=== PATIENT | male | born 1965 | race Two or more races ===

== ENCOUNTER 2020-06-21 11:13 | Emergency (ER) | payer OTHER ==
[~2020-06-21] VITALS: Ht 177.8 cm; Wt 95.3 kg
== END 2020-06-21 17:19 | disposition home or self-care (01) ==
LOC: ER 11:13
DX: S01.81XA Laceration without foreign body of other part of head, initial encounter (principal); B02.8 Zoster with other complications; W22.8XXA Striking against or struck by other objects, initial encounter; Y93.89 Activity, other specified; Y92.488 Other paved roadways as the place of occurrence of the external cause; Y99.8 Other external cause status

== ENCOUNTER 2024-07-03 12:56 | Emergency (ER) | payer OTHER ==
[~2024-07-03] VITALS: Ht 152.4 cm; Wt 68.0 kg
[2024-07-03] MEDS ORDERED: PANTOPRAZOLE SODIUM 40 MG/VIAL VIAL IV ONE (19:30)
[2024-07-03] MEDS ORDERED: DEXTROSE 5 % AND 0.9 % NACL 500 ML IV SCH (19:30)
[2024-07-03] MEDS ORDERED: THIAMINE HCL 100 MG/ML 2 ML VIAL IV ONE (19:45)
[2024-07-03 21:44] LABS: HEMATOCRIT 44.1 % (39.0-48.0); HEMOGLOBIN 15.6 g/dL (13-16.00); MEAN CELL VOLUME 104.4 fL (80.0-100.00); MEAN CORPUSCULAR HGB CONC 35.4 g/dl (32.0-36.0); PLATELET COUNT 219 K/uL (150-450); RED BLOOD COUNT 4.23 M/uL (4.00-6.00); RED CELL DISTRIBUTION WIDTH 14.4 % (11.5-14.5)
[2024-07-03 22:06] LABS: PH,URINE 6.5 (5.0-8.0); URINE APPEARANCE Clear; URINE BILIRRUBIN Negative (NEGATIVE); URINE BLOOD Trace; URINE COLOR Yellow; URINE GLUCOSE Negative (NEGATIVE); URINE KETONE Trace (NEGATIVE); URINE LEUKOCYTE Trace; URINE NITRATE Positive; URINE PROTEIN Negative (NEGATIVE); URINE UROBILINOGEN 0.2 E.U./dl
[2024-07-03 22:10] LABS: URINE EPITHELIAL CELLS 2.6 uL (0.0-38.8); URINE RBC 14.8 uL (0.0-20.8); URINE WBC 48.3 uL (0.0-23.2)
[2024-07-03 22:13] LABS: URINE BACTERIA > 9821.5 uL (0.0-1933); URINE CAST 0.15 uL (0.0-1.40)
[2024-07-03 22:34] LABS: ALBUMIN 4.4 gm/dL (3.4-5.0); BILIRUBIN TOTAL 0.97 mg/dL (0.3-1.2); CALCIUM 9.3 mg/dL (8.5-10.1); CREATININE SERUM 1.75 mg/dL (0.70-1.30); GFR 40.23; GLOBULINA 3.5 G/DL (2.4-3.5); POTASSIUM 3.49 mEq/L (3.5-5.1); TOTAL PROTEIN 7.9 gm/dL (6.4-8.2)
[2024-07-03 22:35] LABS: COCAINE NEGATIVE (NEGATIVE); METHADONE NEGATIVE (NEGATIVE); OPIATES NEGATIVE (NEGATIVE); THC ( Cannabinoids) NEGATIVE (NEGATIVE)
[2024-07-03] MEDS ORDERED: CEFTRIAXONE SODIUM 2,000 MG VIAL IV ONE (22:45)
[2024-07-03] MEDS ORDERED: hydrOXYzine PAMOATE 25 MG CAPSULE PO ONE (23:00)
[2024-07-03] MEDS ORDERED: LORazepam 2 MG/ML VIAL IV ONE (23:00)
[2024-07-04] MEDS ORDERED: hydrOXYzine PAMOATE 50 MG CAPSULE PO ONE (10:15)
[2024-07-04] MEDS ORDERED: LORazepam 1 MG TABLET PO ONE ×2 (10:15→16:15)
[2024-07-04 11:57] LABS: ALBUMIN 3.7 gm/dL (3.4-5.0); BILIRUBIN TOTAL 1.29 mg/dL (0.3-1.2); BILIRUBIN,CONJUGATED 0.44 mg/dL (0.0-0.2); BILIRUBIN,UNCONJUGATED 0.85 mg/dL (0.0-0.6); MAGNESIUM 2.2 mg/dL (1.8-2.4); PHOSPHOROUS 2.1 mg/dL (2.5-4.9); TOTAL PROTEIN 6.8 gm/dL (6.4-8.2)
== END 2024-07-04 20:17 | disposition designated cancer center or children's hospital (05) ==
LOC: ER 12:58
PROVIDERS: Emergency Medicine; Nurse Practitioner Family
DX: F10.94 Alcohol use, unspecified with alcohol-induced mood disorder (principal)

== ENCOUNTER 2024-08-14 18:53 | Emergency (ER) | payer OTHER ==
[~2024-08-14] VITALS: Ht 177.8 cm; Wt 90.7 kg
[2024-08-14] MEDS ORDERED: ATIVAN0.5 M1 (19:07)
[2024-08-14] MEDS ORDERED: TETANUS & DIPHTHERIA TOX,ADULT 0.5 ML VIAL IM STA (21:35)
[2024-08-14] MEDS ORDERED: TETANUS DIPHTHERIA TOX. ADSOR 5 ML VIAL IM ONE (21:38)
[2024-08-14] MEDS ORDERED: LIDOCAINE HCL 1% 10ML VIAL ONE (21:48)
[2024-08-15 16:35] VITALS: BP 100/73; O2SAT 96
== END 2024-08-15 16:35 | disposition home or self-care (01) ==
LOC: ER 18:53
DX: S01.81XA Laceration without foreign body of other part of head, initial encounter (principal); S62.646A Nondisplaced fracture of proximal phalanx of right little finger, initial encounter for closed fracture; X58.XXXA Exposure to other specified factors, initial encounter; Y93.89 Activity, other specified; Y92.89 Other specified places as the place of occurrence of the external cause; Y99.9 Unspecified external cause status; F10.20 Alcohol dependence, uncomplicated

== ENCOUNTER 2024-10-27 18:08 | Inpatient (IN) | payer OTHER ==
[~2024-10-27] VITALS: Ht 152.4 cm; Wt 72.6 kg
[~2024-10-27 18:08] MED LIST: ATIVAN0.5 M1
--- NOTE | 2024-10-27 18:13 | NUR ---
SE RECIBE PACIENTE ALERTA Y ORIENTADO X 3 ESFERAS EN AMBULANCIA EN COMPANIA DE PARAMEDICOS LOS CUALES INDICA QUE ACTIVARON LA AMBULANCIA PORQUE PACIENTE SE ENCONTRABA EN EL SUELO Y QUE HABIA INGERIDO ALCOHOL.
[2024-10-27] MEDS ORDERED: ONDANSETRON HCL 2 MG/ML VIAL IV ONE (18:15)
[2024-10-27] MEDS ORDERED: 0.9 % SODIUM CHLORIDE 1,000 ML IV ONE (18:15)
[2024-10-27] MEDS ORDERED: MULTIVIT INFUSN,ADULT 4,VIT K 10 ML VIAL IV ONE (18:15)
[2024-10-27] MEDS ORDERED: FAMOtidine 10 MG/ML (4ML VIAL) IV ONE (18:15)
[2024-10-27] MEDS ORDERED: THIAMINE HCL 100 MG/ML 2 ML VIAL IV ONE (18:15)
[2024-10-27] MEDS ORDERED: PIPERACILLIN/TAZOBACTAM SODIUM 3.375 GM VIAL IV ONE ×2 (18:15→19:45)
[2024-10-27] MEDS ORDERED: FOLIC ACID 5 MG/ML VIAL IV ONE (18:15)
[2024-10-27 19:07] LABS: ABG PH 7.538 (7.35-7.45); ABG PO2 66.6 mmHg (80-100); ABG pCO2 31.1 mmHg (35-45); BASE EXCESS 4.1 mmol/l; BICARBONATE 25.9 mmol/l (23-25); SaO2 95.5 %; Tco2 26.9 mmol/l
[2024-10-27] MEDS ORDERED: THIAMINE HCL 100 MG/ML 2 ML VIAL ONE (19:44)
[2024-10-27] MEDS ORDERED: ONDANSETRON HCL 2 MG/ML VIAL ONE (19:45)
[2024-10-27] MEDS ORDERED: FAMOTIDINE/PF 20 MG/2 ML VIAL ONE (19:45)
[2024-10-27 19:55] LABS: allen test SATISFACTORY; o2 21 %; puncture site RADIAL RIGHT
[2024-10-27 22:04] LABS: HEMATOCRIT 40.9 % (39.0-48.0); MEAN CELL VOLUME 102.8 fL (80.0-100.00); MEAN CORPUSCULAR HEMOGLOBIN 35.3 pg (27.00-32.0); MEAN CORPUSCULAR HGB CONC 34.3 g/dl (32.0-36.0); PLATELET COUNT 214 K/uL (150-450); RED BLOOD COUNT 3.98 M/uL (4.00-6.00); RED CELL DISTRIBUTION WIDTH 13.9 % (11.5-14.5)
--- NOTE | 2024-10-27 22:17 | NUR ---
SE RECIBE PTE ALERTA ORIENTADO X3.SE STACEY MUESTRAS DE LABORATORIO USANDO MEDIDAS ASEPTICAS.SE ADMINISTRAN MEDICAMENTOS AGGIE ORDEN MEDICA .SE ORIENTA PTE SOBRE OBJETIVO DE [place] MEDICO.
[2024-10-27 22:22] LABS: PARTIAL THROMBOPLASTIN TIME 22.4 SECONDS (22.0-34.0); PROTHROMBIN TIME 10.9 SECONDS (9.0-11.5)
[2024-10-27 22:39] LABS: ALBUMIN 3.5 gm/dL (3.4-5.0); BILIRUBIN TOTAL 0.42 mg/dL (0.3-1.2); CALCIUM 8.8 mg/dL (8.5-10.1); CREATININE SERUM 2.43 mg/dL (0.70-1.30); GFR 27.18; GLOBULINA 3.6 G/DL (2.4-3.5); POTASSIUM 3.73 mEq/L (3.5-5.1); TOTAL PROTEIN 7.1 gm/dL (6.4-8.2)
--- NOTE | 2024-10-28 07:46 | NUR ---
SE RECIBE PTE MASCULINO DE 63 YRS ALERTA Y TRANQUILO EN DESCANSO PTRE CON IVF'S PATENTE Y ORVILLE DE EDEMA .SE LE RADHA S/V Y SE MANIENE CONSULTADO CON MEDICINA INTERNA Y TRABAJADOR SOCIAL. SE MANTIENE BAJO OBSERVACION.
[2024-10-28] MEDS ORDERED: LORazepam 1 MG TABLET PO STA (15:02)
--- NOTE | 2024-10-28 15:30 | NUR ---
SE RECIBE PTE ALERTA Y ORIENTADO X3. EN CAMA BAJA CON BARANDAS ELEVADAS POR SEGURIDAD. SE OBSERVA CON BUEN PATRON RESPIRATORIO. CANALIZACION PATENTE, ORVILLE DE EDEMA Y ERITEMA, RECIBIENDO IV FLUIDS. PEND CONSULTA CON TRABAJO SOCIAL
--- NOTE | 2024-10-28 21:15 | NUR ---
PTE EN CAMA BAJA CON BARANDAS ELEVADAS, SE ENCUENTRA DESCANSANDO
--- NOTE | 2024-10-28 21:29 | NUR ---
SE NOTIFICA CONSULTA A [facility] BASHIR DOVE.
--- NOTE | 2024-10-29 00:15 | NUR ---
SE RECIBE PACIENTE AL MOMENTO EN AREA DE SECCION K EN CAMA EN POSICION SEMI SENTADA ALERTA Y ORIENTADO Y EN REPOSO. SE MIDEN S/V Y SE MANTIENE BAJO OBSERVACION.
--- NOTE | 2024-10-29 01:00 | NUR ---
SE DA ELIGIO PREVENTIVA AL MOMRENTO PACIENTE EN CAMA EN REPOSO.
--- NOTE | 2024-10-29 02:00 | NUR ---
SE EDUCA A PACIENTE SOBRE MEDICAMENTO PARA MANEJO DE ANSIEDAD, EL MISMO REFIERE ENTENDER Y SE PROCEDE CON ORDEN MEDICA.
[2024-10-29] MEDS ORDERED: hydrOXYzine PAMOATE 50 MG CAPSULE PO STA (02:09)
[2024-10-29 08:34] VITALS: O2SAT 99
[2024-10-29] MEDS ORDERED: 0.9 % SODIUM CHLORIDE 1,000 ML IV SCH (10:15)
[2024-10-29] MEDS ORDERED: hydrALAZINE HCL 20 MG VIAL IV PRN (10:15)
[2024-10-29 10:31] LABS: HEMATOCRIT 40.5 % (39.0-48.0); HEMOGLOBIN 14.1 g/dL (13-16.00); MEAN CELL VOLUME 101.4 fL (80.0-100.00); MEAN CORPUSCULAR HEMOGLOBIN 35.4 pg (27.00-32.0); MEAN CORPUSCULAR HGB CONC 34.9 g/dl (32.0-36.0); PLATELET COUNT 173 K/uL (150-450); RED BLOOD COUNT 3.99 M/uL (4.00-6.00); RED CELL DISTRIBUTION WIDTH 14.1 % (11.5-14.5)
[2024-10-29 11:08] LABS: PH,URINE 6.5 (5.0-8.0); URINE APPEARANCE Clear; URINE BILIRRUBIN Negative (NEGATIVE); URINE BLOOD Negative; URINE COLOR Dark Yellow; URINE GLUCOSE Negative (NEGATIVE); URINE LEUKOCYTE Moderate; URINE NITRATE Positive; URINE PROTEIN Trace (NEGATIVE)
[2024-10-29 11:11] LABS: ALBUMIN 3.5 gm/dL (3.4-5.0); BILIRUBIN TOTAL 0.88 mg/dL (0.3-1.2); CALCIUM 8.7 mg/dL (8.5-10.1); CREATININE SERUM 1.6 mg/dL (0.70-1.30); GFR 44.62; GLOBULINA 3.2 G/DL (2.4-3.5); PHOSPHOROUS 3.2 mg/dL (2.5-4.9); POTASSIUM 3.55 mEq/L (3.5-5.1); TOTAL PROTEIN 6.7 gm/dL (6.4-8.2)
[2024-10-29 11:15] LABS: URINE BACTERIA 1357.2 uL (0.0-1933); URINE EPITHELIAL CELLS 17.8 uL (0.0-38.8); URINE RBC 33.1 uL (0.0-20.8); URINE WBC 444.1 uL (0.0-23.2)
[2024-10-29 11:22] LABS: COCAINE NEGATIVE (NEGATIVE); METHADONE NEGATIVE (NEGATIVE); OPIATES NEGATIVE (NEGATIVE); THC ( Cannabinoids) NEGATIVE (NEGATIVE)
[2024-10-29 11:27] LABS: URINE CAST 0.58 uL (0.0-1.40); URINE KETONE 40 (NEGATIVE); URINE MUCUS SCANT
[2024-10-29] MEDS ORDERED: LORazepam 1 MG TABLET PO SCH (17:00)
[2024-10-29 17:11] LABS: ALBUMIN 3.4 gm/dL (3.4-5.0); BILIRUBIN TOTAL 0.49 mg/dL (0.3-1.2); CALCIUM 8.7 mg/dL (8.5-10.1); CREATININE SERUM 1.63 mg/dL (0.70-1.30); GFR 43.67; GLOBULINA 3.7 G/DL (2.4-3.5); POTASSIUM 3.27 mEq/L (3.5-5.1); TOTAL PROTEIN 7.1 gm/dL (6.4-8.2)
[2024-10-29 18:06] VITALS: BP 119/66
[2024-10-29 18:09] VITALS: BP 149/85
[2024-10-29] MEDS ORDERED: LORazepam 2 MG/ML VIAL IV PRN (19:45)
[2024-10-29] MEDS ORDERED: CHLORDIAZEPOXIDE HCL 25 MG CAPSULE PO SCH (21:00)
[2024-10-29 22:37] LABS: ABG pCO2 33.4 mmHg (35-45); BASE EXCESS 0.8 mmol/l; BICARBONATE 23.8 mmol/l (23-25); SaO2 95.1 %; Tco2 24.8 mmol/l; allen test SATISFACTORY; o2 21 %; puncture site RADIAL LEFT
[2024-10-29 22:39] LABS: ABG PO2 70.5 mmHg (80-100)
[2024-10-30 01:00] VITALS: BP 102/70
[2024-10-30 08:54] VITALS: BP 119/81
[2024-10-30] MEDS ORDERED: LACTULOSE 20 G/30 ML BLIST.PACK PO SCH (09:00)
[2024-10-30] MEDS ORDERED: POTASSIUM CHLORIDE 10 MEQ CAPSULE PO NR (12:30)
[2024-10-30 17:00] VITALS: BP 148/88
[2024-10-30] MEDS ORDERED: DEXTROSE 5 % AND 0.9 % NACL 1,000 ML IV SCH (18:15)
[2024-10-30] MEDS ORDERED: MAGNESIUM SULFATE IN WATER 2 GM/50 ML PIGGYBAG IV NR (20:00)
[2024-10-30] MEDS ORDERED: POTASSIUM BICARBONATE/CIT AC 25 MEQ TABLET.EFF PO SCH (21:00)
[2024-10-31 00:46] VITALS: BP 119/71
[2024-10-31 04:48] LABS: CALCIUM 8.2 mg/dL (8.5-10.1); CREATININE SERUM 0.95 mg/dL (0.70-1.30); GFR 81.43; POTASSIUM 3.59 mEq/L (3.5-5.1)
[2024-10-31 04:50] LABS: MAGNESIUM 2.1 mg/dL (1.8-2.4); PHOSPHOROUS 3.1 mg/dL (2.5-4.9)
[2024-10-31 08:58] VITALS: BP 127/68
[2024-10-31] MEDS ORDERED: HALOPERIDOL LACTATE 5 MG/ML AMPUL IM PRN (10:15)
[2024-10-31 17:50] VITALS: BP 139/82
[2024-10-31] MEDS ORDERED: THIAMINE HCL 100 MG/ML 2 ML VIAL IV NR (18:00)
[2024-11-01] MEDS ORDERED: THIAMINE HCL 100 MG/ML 2 ML VIAL IV SCH (17:00)
== END 2024-10-31 21:06 | disposition home or self-care (01) | DRG 683 ==
LOC: ER 18:08 → EDBD 22:44 → MEDI 10-29 12:22
PROVIDERS: General Practice; ADMIT Internal Medicine; ATTEND Internal Medicine
PROC: BW28ZZZ Computerized Tomography (CT Scan) of Head (ICD-10-PCS; principal; 2024-10-27)
PROC: BW24ZZZ Computerized Tomography (CT Scan) of Chest and Abdomen (ICD-10-PCS; 2024-10-27)
DX: N17.9 Acute kidney failure, unspecified (principal); F10.180 Alcohol abuse with alcohol-induced anxiety disorder; F10.129 Alcohol abuse with intoxication, unspecified